=== PATIENT | female | born 2000 | race Hispanic/Latino ===

== ENCOUNTER 2022-10-19 15:44 | Emergency (ER) | payer BC ==
[~2022-10-19] VITALS: Ht 165.1 cm; Wt 85.5 kg
[2022-10-19 19:27] LABS: BASO % 0.3 % (0.0-1.0); EOS # 0.1 10^3/uL (0.0-0.5); EOS % 0.8 % (0.0-3.0); HEMATOCRIT 41.6 % (36.0-47.0); HEMOGLOBIN 13.8 g/dl (12.0-15.5); LYMPH # 1.8 10^3/uL (1.5-5.0); LYMPH % 29.6 % (24.0-44.0); MEAN CORPUSCULAR HGB CONC 33.2 g/dl (32.0-36.5); MEAN CORPUSCULAR VOLUME 87.4 fl (80.0-96.0); MONO # 0.3 10^3/uL (0.0-0.8); MONO % 5.2 % (2.0-8.0); NEUTROPHILS % 63.9 % (36.0-66.0); PLATELET COUNT, AUTOMATED 275 10^3/uL (150-450); RED BLOOD COUNT 4.76 10^6/uL (4.00-5.40); WHITE BLOOD COUNT 6.2 10^3/uL (4.0-10.0)
[2022-10-19] MEDS ORDERED: ISOVUE-370 76% 100ML VIAL As Ordered ONE (19:27)
[2022-10-19 19:41] LABS: ALBUMIN 4.1 G/DL (3.2-5.2); BILIRUBIN,DIRECT 0.3 MG/DL (<0.4); BILIRUBIN,TOTAL 0.9 MG/DL (0.3-1.2); TOTAL PROTEIN 6.8 G/DL (5.7-8.2)
[2022-10-19] MEDS ORDERED: MACR100C43 PO (20:16)
[2022-10-19] MEDS ORDERED: NITROFURANTOIN (MACROBID) 100 MG CAP PO ONE (20:20)
[2022-10-19 20:36] VITALS: BP 110/69
== END 2022-10-19 20:46 | disposition home or self-care (01) ==
LOC: M ED 15:44
DX: N39.0 Urinary tract infection, site not specified (principal)
CPT/HCPCS: 36415; 74177; 80047; 80076; 81001; 83690; 85025; 87086; 99284; Q9967